=== PATIENT | male | born 1970 | race Caucasian/White ===

== ENCOUNTER 2019-07-14 08:36 | Outpatient (CLI) | payer BC, SELFPAY ==
--- NOTE | 2019-08-09 12:58 | SLEEP_ITS ---
CPAP BiPAP titration DATE OF STUDY: 07/14/2019 ORDERING PHYSICIAN: Dr. Dallin Metz. REASON FOR THE STUDY: History of obstructive sleep apnea syndrome, needs retitration. HISTORY: The patient is a 49-year-old male, 64 inches tall, weighing 257 pounds with a body mass index of 44.1. He was diagnosed with severe obstructive sleep apnea syndrome on October 05, 2014, with an apnea-hypopnea index of 134.9 associated with loud continuous snoring and multiple and sometimes severe oxygen desaturation. CPAP titration on 11/30/2014 showed adequate CPAP titration on 14 cm of water pressure with correction of snoring and REM was achieved. The patient currently has loud snoring and increased difficulty of breathing. He has used CPAP for the last 5 years. These episodes are occurring nightly despite use of CPAP. He frequently awakens from sleep feeling short of breath, occasionally with heartburn or belching. He constantly snores and it is frequently loud enough that others complain about it. He occasionally has trouble sleeping with a cold, occasionally gasps for breath at night, frequently has breathing problems reported to him by others. He occasionally sweats excessively at night. He rarely notices his heart pounding or beating irregularly at night. He frequently falls asleep during the day, frequently involuntarily. He does not fall asleep while driving or during physical effort. He does not have loss of muscle tone with strong emotion. He does not have daytime difficulties due to excessive sleepiness. He does not feel paralyzed on waking or falling asleep and rarely has vivid dreamlike scenes upon awakening or falling asleep. He is never afraid to go to sleep. He does not have nightmares. He rarely has racing thoughts or remembers his dreams. He rarely feels sad or depressed. He occasionally has anxiety. He rarely has muscular tension. He does not notice parts of his body jerking. He rarely kicks at night and rarely has crawly achy feelings in his legs. He occasionally has leg pain at night. He does not have morning jaw pain. He does not grind his teeth during sleep. He rarely is bothered by pain during the day or awakened by pain at night. He occasionally wakes up feeling stiff in the morning with sore achy muscles, or pain in the neck and spine. He is unable to relax. Normal bedtime is 1 a.m. falling asleep within minutes, waking several times at night for a few minutes to reposition and possibly go to the bathroom. He awakens in the morning at 10 a.m. Weekend schedule is the same. He estimates 6 to 8 hours of sleep per night. He does not take naps. Short naps are not refreshing. He is drowsy in the morning for 1 hour or longer. MEDICAL COMORBIDITIES: Chronic kidney disease, on hemodialysis; peripheral arterial disease, with stents in both legs; hypertension, hyperlipidemia, tobacco abuse; history of LISS, on CPAP; shortness of breath. MEDICATIONS: 1. Amlodipine 10 mg a day. 2. Atorvastatin 40 mg a day. 3. Carvedilol 25 mg b.i.d. 4. Plavix 75 mg a day. 5. Eliquis 5 mg b.i.d. 6. Furosemide 160 mg twice a day. 7. Hydralazine 25 mg twice a day. 8. Gemfibrozil 600 [place] 9[place] [address] units [place]. HABITS: Tobacco, currently smoking a pack per day. Two cups of coffee per day. No alcohol. DESCRIPTION OF THE STUDY: On the [place] Sleepiness Scale, the score is 13. This was conducted as a full night titration starting with CPAP, then BiPAP, using the same and multiple channel system including EOG, EEG, submental EMG, EKG, nasal and oral airflow using thermistors and nasal pressure sensors, chest and abdominal belts, body position data and pulse oximetry. The study was scored using CMS guidelines. The duration was 484.3 minutes. Sleep t
== END 2019-07-14 08:37 | disposition home or self-care (01) ==
LOC: ANHCSM 08:38
PROVIDERS: PCP Emergency Medicine; Visit Provider Emergency Medicine
DX: G47.30 Sleep apnea, unspecified (principal)
CPT/HCPCS: 95811

== ENCOUNTER 2020-11-04 04:16 | Emergency (ER) | payer MEDICARE, SELFPAY ==
--- NOTE | ~2020-11-04 | US_ITS ---
EXAMINATION: US venous doppler LE RT DATE: 11/04/2020 07:58 INDICATION: Right lower limb pain and swelling TECHNIQUE: Landis scale images without and with compression and Doppler images of the right lower extre mity veins were obtained. COMPARISON: None FINDINGS: The right common femoral vein, profunda femoral vein, femoral vein, popliteal vein, peronea l trunk, posterior tibial veins, and greater saphenous vein are patent. IMPRESSION: 1. Patent right lower extremity veins. No evidence of deep venous thrombosis. Reviewed, dictated and finalized at location A.
[2020-11-04 04:15] VITALS: BP 130/64; PULSE 95; RESP 20; TEMP 36.7; O2SAT 97
[2020-11-04 04:30] LABS: Basophils Absolute Auto 0.1 K/mm3 (0.0-0.1); Basophils Percent Auto 0.5 % (0.2-1.2); Eosinophils Absolute Auto 0.5 K/mm3 (0-0.3); Eosinophils Percent Auto 4.9 % (0-4.4); Hematocrit 27.5 % (42.0-52.0); Immature Granulocyte Absolute 0.11 K/mm3 (0.00-0.031); Immature Granulocyte Percent A 1.1 % (0-0.5); Lymphocytes Absolute Auto 1.62 K/mm3 (0.9-3.2); Lymphocytes Percent Auto 16.1 % (18.3-44.2); Mean Corpuscular HGB Conc 32.7 g/dl (32-36); Mean Corpuscular Hemoglobin 34.1 pg (26-34); Mean Corpuscular Volume 104.2 fl (80-100); Mean Platelet Volume 9.9 fl (7.4-10.4); Monocytes Absolute Auto 0.9 K/mm3 (0.1-0.6); Monocytes Percent Auto 8.8 % (2.6-8.5); Neutrophils Absolute Auto 6.9 K/mm3 (1.3-6.7); Neutrophils Percent Auto 68.6 % (45.5-73.1); Platelet Count Result 218 k/mm3 (150-375); Red Blood Count 2.64 M/mm3 (4.6-6.20); Red Cell Distribution Width 14.4 % (11.5-14.5); White Blood Count 10.1 K/mm3 (4.5-10.0)
[2020-11-04] MEDS: diazePAM INJ (*CRX) 10 MG/2 ML SYRINGE 5 MG IV PUSH (04:30)
[2020-11-04 04:50] LABS: Anion Gap 16 mmol/L (8-16); Blood Urea Nitrogen 72 mg/dL (9-20); Calcium 8.5 mg/dL (8.4-10.2); Carbon Dioxide 23 mmol/L (22-30); Chloride 100 mmol/L (98-107); Estimated CRCL calculation 5 ml/min; Estimated Glomerular Filt Rate 3; Glucose 139 mg/dL (75-110); Potassium 4.5 mmol/L (3.4-5.0); Sodium 139 mmol/L (137-145)
[2020-11-04 05:47] VITALS: PULSE 81; RESP 20; O2SAT 97
[2020-11-04] MEDS: MORPHINE SULFATE (*CRX) 4 MG/ML INJ IV PUSH (05:47)
--- NOTE | 2020-11-04 06:02 | ED.LOWEXIN ---
HPI - Extremity Injury (Lower) General Chief Complaint: Extremity Injury, Lower <Jose M Marti MD - Last Filed: 11/04/20 06:06> Stated Complaint: knee pain <Jose M Marti MD - Last Filed: 11/04/20 06:06> Time Seen by Provider: 11/04/20 08:36 <Jose M Marti MD - Last Filed: 11/04/20 06:06> History of Present Illness HPI Narrative: Patient is a 50-year-old male who presents ER with right lower extremity pain. Sudden onset tonight. Has a lot of pain in his calf and the right lateral aspect of the knee to the thigh. Has pain with any type of movement and with palpation of the calf. No numbness or tingling. Denies any trauma. Reports regular dialysis not missing any treatments. Still makes urine. No chest pain or chest pressure. No nausea/vomiting/dizziness. <Jose M Marti MD - Last Filed: 11/04/20 06:06> Related Data Home Medications: Home Medications Medication Instructions Recorded Confirmed amlodipine 10 mg tablet 10 mg PO DAILY 03/12/20 apixaban 5 mg tablet 5 mg PO BID 03/12/20 atorvastatin 40 mg tablet 40 mg PO DAILY 03/12/20 carvedilol 25 mg tablet 25 mg PO BID tablet 03/12/20 clopidogrel 75 mg tablet 75 mg PO DAILY 03/12/20 famotidine 20 mg tablet 20 mg PO BID tablet 03/12/20 furosemide 80 mg tablet 80 mg PO BID 03/12/20 hydralazine 25 mg tablet 25 mg PO BID tablet 03/12/20 calcitriol 0.25 mcg capsule 0.25 mcg PO BID cap 04/25/20 cholecalciferol (vitamin D3) 25 25 mcg PO DAILY 04/25/20 mcg (1,000 unit) tablet ferric citrate 210 mg iron tablet 210 mg PO TID 04/25/20 gemfibrozil 600 mg tablet 600 mg PO DAILY 04/25/20 vitamin B complex-vitamin C-folic 1 tablet PO DAILY 04/25/20 acid 0.8 mg tablet <Jose M Marti MD - Last Filed: 11/04/20 06:06> Allergies/Adverse Reactions: Allergies Allergy/AdvReac Type Severity Reaction Status Date / Time codeine AdvReac Unknown unknown Verified 04/25/20 10:05 <Jose M Marti MD - Last Filed: 11/04/20 06:06> Review of Systems Review of Systems: All systems reviewed & are unremarkable except as noted in HPI and below <Jose M Marti MD - Last Filed: 11/04/20 06:06> Constitutional: Constitutional: Denies chills, Denies fever(s) and Denies weakness <Jose M Marti MD - Last Filed: 11/04/20 06:06> Cardiovascular: Cardiovascular: Denies chest pain and Denies radiating jaw, neck or arm pain <Jose M Marti MD - Last Filed: 11/04/20 06:06> Musculoskeletal: Musculoskeletal: Denies back pain, Reports arthralgias, Denies joint swelling and Reports muscle cramps <Jose M Marti MD - Last Filed: 11/04/20 06:06> Neurologic: Denies focal weakness and Denies numbness <Jose M Marti MD - Last Filed: 11/04/20 06:06> [facility] Past Medical History Medical History: Medical History (Updated 11/04/20 @ 09:32 by Сергей Espinal MD) ESRD (end stage renal disease) Receives peritoneal dialysis FH: HTN (hypertension) Hyperlipidemia Observed sleep apnea Obstructive sleep apnea PVD (peripheral vascular disease) Shortness of Breath Tobacco abuse <Jose M Marti MD - Last Filed: 11/04/20 06:06> Family History Family History: Family History (System 03/19/20 @ 12:00 by Marlnee Plasencia) Father Hypertension <Jos eM Marti MD - Last Filed: 11/04/20 06:06> Social History Social History: Social History (System 03/19/20 @ 12:00 by Marlene Plasencia) Smoking status: Former smoker Alcohol intake: never Substance use: unknown <Jose M Marti MD - Last Filed: 11/04/20 06:06> Exam Narrative: Exam Narrative: GENERAL: Chronically ill-appearing, obese, and in no acute distress. HEAD: Normocephalic, atraumatic. ENT: Mucous membranes moist. CHEST: Clear to auscultation. No respiratory distress. HEART: Regular rate and rhythm. Normal peripheral pulses. ABDOMEN: Soft, nontender, nondistended. EXTREMITIES: Limited range of motion right lower extre
[2020-11-04 06:19] LABS: Magnesium 2.1 mg/dL (1.6-2.3)
[2020-11-04 07:51] VITALS: BP 131/70; PULSE 82; RESP 20; O2SAT 97
[2020-11-04] MEDS: HYDROcodone/acetaminophen (*CRX) 5-325 MG TABLET 1 TAB PO (09:39)
== END 2020-11-04 09:47 | disposition home or self-care (01) ==
PROVIDERS: Emergency Medicine; Emergency Provider Emergency Medicine; PCP Emergency Medicine
DX: M79.604 Pain in right leg (principal); N18.6 End stage renal disease; Z99.2 Dependence on renal dialysis; E78.5 Hyperlipidemia, unspecified; G47.33 Obstructive sleep apnea (adult) (pediatric); I73.9 Peripheral vascular disease, unspecified; Z87.891 Personal history of nicotine dependence
CPT/HCPCS: 36415; 80048; 83735; 85025; 93971; 96365; 96375; 99284; A9270; J0131; J2270; J3360

== ENCOUNTER 2022-04-29 08:19 | Outpatient (CLI) | payer MEDICARE, SELFPAY ==
--- NOTE | 2022-05-27 10:21 | WPDSLEEPSTUD ---
Sleep Study Date of Study: 04/29/22 Ordering Provider: Herminia Pena Interpreting Physician: Latonya Arana MD Sleep Study Type: BiPAP Titration Height: 1.61 m Weight: 113.398 kg Body Mass Index: 43.6 Neck Circumference (inches): 21.5 Welcome: 0 Reason for Sleep Study Obstructive sleep apnea, worsening symptoms * 07/14/2019, titration; optimal pressure was 24/19 using a large [employer] med Quattro FX full face mask.? He says that the pressure was really high and a friend of his lowered it recently to which does feel better but he still has problems with air leakage around the mask. This is the pressure he used. Sleep History Jigar Frost is a 52-year-old man who has had sleep apnea for 10-12 years. Even while he was using CPAP he had worsening sleep apnea symptoms with loud snoring, waking during sleep, waking up feeling short of breath and having GERD symptoms during sleep. He went in to kidney failure and started peritoneal dialysis. 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 He also has peripheral arterial disease. While using CPAP he does not generally awaken feeling short of breath or awaken with heartburn, belching or coughing.? He frequently snores, occasionally loud enough that it bothers other.? He has trouble sleeping with a cold.? He does not gasp for breath any longer.? He does not sweat excessively at night or notice his heart pounding or beating irregularly.? He does not fall asleep during the day, does not fall asleep involuntarily or while driving.? He does not have loss of muscle tone with strong emotion.? He does not have daytime difficulties due to excessive sleepiness.? He does not feel paralyzed on waking or falling asleep nor does he have vivid dreamlike scenes on waking or falling asleep. He does not feel afraid to go to sleep.? He denies having nightmares.? He does not have dream recall.? He does not have racing thoughts.? He denies feeling sad depressed or anxious.? He does not have muscular tension.? He does not notice parts of his body jerking.? He does not kick at night.? He denies having crawling aching feelings in his legs.? He does not have any kind of leg pain at night.? He does not have morning jaw pain.? He does not grind his teeth at night.? He is not bothered by pain during the day or awakened by pain at night.? He does not wake up with sore stiff muscles in the morning or pain in the neck and spine. Normal bedtime is 11:30 p.m..? Usually he is able to fall asleep within 10-15 minutes.? He typically wakes 3-4 times during the night and will stay awake between 5 and 10 minutes.? He wakes the morning at 8:00 a.m..? His weekend schedule is the same.? He estimates getting 6-8 hours of sleep at night.? He takes naps sometimes after dialysis.? A short nap is not refreshing.? He feels better in the afternoon compared to other times of day. ?He does not have morning headaches.? When using PAP therapy he generally awakens refreshed.? He has not had any weight change in the last year. Habits:? No tobacco.? Caffeine 1 cup of coffee a day.? No alcohol or recreational substances. [facility] Past Medical History Medical History Abscess ESRD (end stage renal disease) Receives peritoneal dialysis FH: HTN (hypertension) Hyperlipidemia Observed sleep apnea Obstructive sleep apnea PD catheter dysfunction PVD (peripheral vascular disease) Shortness of Breath Tobacco abuse Family History Family History Father Hypertension Social History Social History Smoking status: Former smoker Alcohol intake: never Substance use: unknown Medications Home Medications Medication Instructions Recorded Confirmed Type apixaban 5 mg tablet 5 mg PO BID 03/12/20 11/08/20 History atorvastatin 40 mg tablet 40 mg PO DAILY 03/12/20 11/08/20 History ca
[2022-05-27 11:51] VITALS: BMI 43.6
== END 2022-04-30 06:38 | disposition home or self-care (01) ==
LOC: ANHCSM 08:23
PROVIDERS: PCP Emergency Medicine
DX: R06.00 Dyspnea, unspecified (principal); E66.9 Obesity, unspecified; G47.33 Obstructive sleep apnea (adult) (pediatric)
CPT/HCPCS: 95811

== ENCOUNTER 2023-10-18 07:00 | Emergency (ER) | payer MEDICARE, SELFPAY ==
[2023-10-18 07:01] VITALS: BP 126/106; PULSE 102; RESP 37; O2SAT 88
[2023-10-18 07:16] LABS: Glucose Point of Care 120 mg/dl (65-105)
--- NOTE | 2023-10-18 07:21 | ED.CPR ---
HPI - CPR General Chief Complaint: Cardiac Arrest/CPR Stated Complaint: cardiac arrest Time Seen by Provider: 10/18/23 07:00 History of Present Illness HPI narrative: Patient is a 53-year-old male who presents the ER in cardiac arrest. Witnessed by his . Upon arrival here patient has been down for approximately 45 minutes with only 5 minutes of Ross. Patient had 5 rounds of epinephrine by EMS with an Accu-Chek around 112. Accu-Chek here is 120. Patient had been out of town in the [facility] over the weekend. He had been at a barbecue. reports he had been feeling short of breath beginning last night. She felt like he had too much fluid on due to Increase fluid intake over the weekend. He was going to go to dialysis this morning. Patient was speaking with his when his arms again she briefly and he collapsed and became unresponsive. Patient has a supraglottic airway in place by EMS. Pulse oximetry reading in the mid 90s upon arrival here. Jamil device providing compressions. Patient has a left-sided tibial intraosseous line. denies history of congestive heart failure. No missed dialysis appointments. Related Data Home Medications Medication Instructions Recorded Confirmed apixaban 5 mg tablet 5 mg PO BID 03/12/20 11/08/20 atorvastatin 40 mg tablet 40 mg PO DAILY 03/12/20 11/08/20 carvedilol 25 mg tablet 25 mg PO BID 03/12/20 11/08/20 clopidogrel 75 mg tablet 75 mg PO DAILY 03/12/20 11/08/20 famotidine 20 mg tablet 20 mg PO BID 03/12/20 11/08/20 furosemide 80 mg tablet 80 mg PO BID 03/12/20 11/08/20 calcitriol 0.25 mcg capsule 0.25 mcg PO BID 04/25/20 11/08/20 cholecalciferol (vitamin D3) 25 25 mcg PO DAILY 04/25/20 11/08/20 mcg (1,000 unit) tablet ferric citrate 210 mg iron tablet 210 mg PO TID 04/25/20 11/08/20 (Auryxia) vitamin B complex-vitamin C-folic 1 tablet PO DAILY 04/25/20 11/08/20 acid 0.8 mg tablet (Dialyvite 800) apixaban 5 mg tablet (Eliquis) 5 mg PO BID 11/08/20 11/08/20 cinacalcet 30 mg tablet 30 mg PO DAILY 11/08/20 11/08/20 cyclobenzaprine 5 mg tablet 5 mg PO TID PRN 11/08/20 11/08/20 gentamicin 0.1 % topical cream 1 applic topical TID 11/08/20 11/08/20 losartan 50 mg tablet (Cozaar) 50 mg PO DAILY 11/08/20 11/08/20 polyethylene glycol 3350 17 17 g PO DAILY 11/08/20 11/08/20 gram/dose oral powder (Miralax) tramadol 50 mg tablet 50 mg PO Q6H PRN 11/08/20 11/08/20 vitamin B complex-vitamin C-folic 1 tablet PO DAILY 11/08/20 11/08/20 acid 0.8 mg tablet (Renal Vitamin) Allergies Allergy/AdvReac Type Severity Reaction Status Date / Time codeine AdvReac Unknown unknown Verified 11/13/20 12:01 Review of Systems Review of Systems: ROS unobtainable: Yes unobtainable due to medical condition PMFSH Past Medical History Medical History Abscess ESRD (end stage renal disease) Receives peritoneal dialysis FH: HTN (hypertension) Hyperlipidemia Observed sleep apnea Obstructive sleep apnea PD catheter dysfunction PVD (peripheral vascular disease) Shortness of Breath Tobacco abuse Family History Family History Father Hypertension Social History Social History Smoking status: Former smoker Alcohol intake: never Substance use: unknown Exam Narrative: GENERAL: Unresponsive, obese. HEAD: Normocephalic, atraumatic. EYES: Pupils equal and round and mid dilated. ENT: Mucous membranes moist. CHEST: Clear to auscultation while being bagged. HEART: palpable pulses in the femoral artery with Jamil device but no pulses without compressions. ABDOMEN: Soft, nondistended. EXTREMITIES: No deformity, left tibial intraosseous device. No edema. SKIN: cool, dry, no rash. NEURO: GCS 3. No gag reflex. Course Course Emergency Course: Discussed case with patients . Brought her to bedside
--- NOTE | 2023-10-19 06:03 | PC.NURSE ---
MTS released patient from donation at 0545. [facility] contacted per property underwriter at [id number] for decedent picker tender.
== END 2023-10-18 12:24 | disposition expired ==
PROVIDERS: Emergency Provider Emergency Medicine; PCP Emergency Medicine
DX: I46.9 Cardiac arrest, cause unspecified (principal); N18.6 End stage renal disease; Z99.2 Dependence on renal dialysis; E78.5 Hyperlipidemia, unspecified; G47.33 Obstructive sleep apnea (adult) (pediatric); Z79.01 Long term (current) use of anticoagulants; I73.9 Peripheral vascular disease, unspecified; Z87.891 Personal history of nicotine dependence
CPT/HCPCS: 82948; 92950; 96374; 99285; J0171